=== PATIENT | female | born 1945 | race Caucasian/White ===

== ENCOUNTER → 2017-03-26 | Outpatient (CLI) | payer OTHER ==
[~2017-03-26] MED LIST: NAPROSYN500 MG PO
== END ==
LOC: CAT 10:00
DX: R10.30 Lower abdominal pain, unspecified (principal)

== ENCOUNTER → 2017-05-04 | Outpatient (CLI) | payer OTHER | LOC: RAD 04:46 | DX: Z12.31 Encounter for screening mammogram for malignant neoplasm of breast (principal) ==

== ENCOUNTER → 2017-10-26 | Outpatient (CLI) | payer OTHER | LOC: ULTRA 09:18 | DX: K80.10 Calculus of gallbladder with chronic cholecystitis without obstruction (principal) ==

== ENCOUNTER → 2018-05-07 | Outpatient (CLI) | payer OTHER ==
[~2018-05-07] MED LIST changes: +ALENDRONATE SOD70 MG PO; +AMBIEN 5 MG TABL5 M1 PO; +B COMPLEX1 EACH PO; +CLARITIN10 MG PO; +EXCEDRIN CAPLE1 EACH PO; +TRAZODONE 150150 M1 PO; +VITAMIN B-121000 MC4 IM; +VITAMIN D50000 UNIT PO
== END ==
LOC: RAD 04:22
DX: Z12.31 Encounter for screening mammogram for malignant neoplasm of breast (principal)

== ENCOUNTER → 2018-12-23 | Outpatient (CLI) | payer OTHER | LOC: NUC 09:45 | DX: M81.0 Age-related osteoporosis without current pathological fracture (principal); M85.88 Other specified disorders of bone density and structure, other site ==

== ENCOUNTER → 2019-04-14 | Outpatient (CLI) | payer OTHER | LOC: RAD 04:22 | DX: Z12.31 Encounter for screening mammogram for malignant neoplasm of breast (principal) ==

== ENCOUNTER → 2020-04-16 | Outpatient (CLI) | payer OTHER | LOC: BC 12:43 | DX: Z12.31 Encounter for screening mammogram for malignant neoplasm of breast (principal) ==

== ENCOUNTER → 2020-06-21 | Outpatient (CLI) | payer OTHER | LOC: NUC 09:08 | PROVIDERS: ATTEND Family Medicine | DX: M81.0 Age-related osteoporosis without current pathological fracture (principal) ==

== ENCOUNTER → 2021-03-11 | Outpatient (CLI) | payer OTHER | LOC: BC 10:52 | PROVIDERS: ATTEND Family Medicine | DX: Z12.31 Encounter for screening mammogram for malignant neoplasm of breast (principal); N64.89 Other specified disorders of breast ==